=== PATIENT | female | born 1965 | race Caucasian/White ===

== ENCOUNTER 2018-05-05 17:15 | Emergency (ER) | payer BC ==
[2018-05-05 18:35] LABS: BASO % 0.2 % (0-6); EOS % 2.3 % (0-6); GRAN % 49.7 % (47-80); HEMATOCRIT 39.5 % (35.0-47.0); HEMOGLOBIN 12.8 gm/dl (11.6-16.0); LYMPH % 42.7 % (16-45); MEAN CELL VOLUME 94.5 fl (81-97); MEAN CORPUSCULAR HEMOGLOBIN 30.6 pg (27-33); MEAN CORPUSCULAR HGB CONC 32.4 g/dl (32-36); MONO % 5.1 % (0-9); PLATELET COUNT 265 K/uL (130-400); RED BLOOD COUNT 4.18 M/uL (3.80-5.40); RED CELL DISTRIBUTION WIDTH 13.4 % (11.5-14.5); WHITE BLOOD COUNT W/O DIFF 5.7 K/uL (4.2-12.2)
[2018-05-05 18:48] LABS: BLOOD UREA NITROGEN 13 mg/dL (6-20); CREATININE 0.4 mg/dL (0.5-0.9); EST GLOMERULAR FILTRATION RATE > 60 mL/min
--- NOTE | 2018-05-05 18:49 | Emergency Department Record ---
History of Present Illness - General Chief Complaint: Chest Pain Stated Complaint: CHEST PAIN Time Seen by Provider: 05/05/18 18:41 Source: Patient Mode of Arrival: Ambulatory - History of Present Illness Initial Comments: The patient states that today she was watching TV around 4 or 5pm when she developed a sudden stabbing left anterior chest pain 8-9/10 severity associated with nausea, diaphoresis, and difficulty taking a deep breath. She took gas ex which did not help. She noticed it worsened with twisting and moving and deep breathing. For the past 2 weeks she has overall not been feeling well. She has been feeling exhausted overall, and has had intermittent RLQ abdominal pains with nausea and loose stools. She denies fevers, chills, cough, sore throat or any respiratory issues. She has not vomited, and denies being gassy or belching. Many years ago she had fatty food intolerance when her daughter, now an adult, was born. She had a cardiac workup several years ago by [facility] which she tells me was normal. Last summer she was diagnosed with Clara's thyroiditis, and she now is taking thyroid supplements. Cardiac risk factors: nonsmoker, no DM, htn, cholesterol elevation. FH: father had an NM age 55. Onset/Timin -: Minutes(s) Pain Location: Left chest Severity scale (1-10): 8 Quality: Heaviness, Sharp Consistency: Constant - Related Data Home Medications Medication Instructions Recorded Confirmed Last Taken Alprazolam [Xanax] 0.25 mg PO NOW 05/05/18 05/05/18 05/04/18 Dicyclomine HCl [Bentyl] 10 mg PO Q8H 05/05/18 05/05/18 05/04/18 Levothyroxine Sodium 1 tab PO DAILY 05/05/18 05/05/18 05/05/18 Naratriptan HCl [Amerge] 2.5 mg PO DAILY PRN 05/05/18 05/05/18 05/04/18 Suvorexant [Belsomra] 1 tab PO QHS 05/05/18 05/05/18 05/04/18 Allergies Allergy/AdvReac Type Severity Reaction Status Date / Time acetaminophen [From PERCOCET] Allergy Unknown NAUSEA AND Verified 05/05/18 19:18 VOMITING oxycodone HCl [From PERCOCET] Allergy Unknown NAUSEA AND Verified 05/05/18 19:18 VOMITING cephalexin [From Keflex] Allergy HIVES Verified 05/05/18 19:18 Travel Screening - Travel/Exposure Within Last 30 Days Have you traveled within the last 30 days?: No - Travel/Exposure Within Last Year Have you traveled outside the [place] in the last year?: No - Additonal Travel Details Have you been exposed to anyone with a communicable illness?: No - Travel Symptoms Symptom Screening: None Review of Systems Reviewed: No additional complaints except as noted below Constitutional: Reports: As per HPI. Denies: Chills, Fever, Malaise, Night sweats, Weakness, Weight change Eyes: Reports: As per HPI. Denies: Eye discharge, Eye pain, Photophobia, Vision change ENT: Reports: As per HPI. Denies: Congestion, Dental pain, Ear pain, Epistaxis , Hearing loss, Throat pain Respiratory: Reports: As per HPI. Denies: Cough, Dyspnea, Hemoptysis, Stridor, Wheezes Cardiovascular: Reports: As per HPI. Denies: Arrhythmia, Chest pain, Dyspnea on exertion, Edema, Murmurs, Orthopnea, Palpitations, Paroxysmal nocturnal dyspnea, Rheumatic Fever, Syncope Endocrine: Reports: As per HPI. Denies: Fatigue, Heat or cold intolerance, Polydipsia, Polyuria Gastrointestinal: Reports: As per HPI, Abdominal pain (RLQ), Nausea (inermittent ). Denies: Constipation, Diarrhea, Hematemesis, Hematochezia, Melena, Vomiting Genitourinary: Reports: As per HPI. Denies: Abnormal menses, Discharge, Dyspareunia, Dysuria, Frequency, Hematuria, Incontinence, Retention, Urgency Musculoskeletal: Reports: As per HPI. Denies: Arthralgia, Back pain, Gout, Joint swelling, Myalgia, Neck pain Skin: Reports: As per HPI. Denies: Bruising, Change in color, Change in hair/ nails, Lesions, Pruritus, Rash Neurological: Reports: As per HPI. Denies: Abnormal gait, Confusion, Headache, Numbness, Paresthesias, Seizure, Tingling, Tremors, Vertigo, Weakness Psychiatric: Reports: As per HPI. Denies: Anxiety, Auditory hallucinations, Depression, Homicidal thoughts, Suicidal thoughts, Visual hallucinations Hematological/Lymphatic: Reports: As per HPI. Denies: Anemia, Blood Clots, Easy bleeding, Easy bruising, Swollen glands Past Medical History - SOCIAL HISTORY Smoking Status: Never smoker Alcohol Use: Rare Drug Use: None - RESPIRATORY Hx Respiratory Disorders: Yes Hx Asthma: Yes Hx Bronchitis: Yes Hx Pneumonia: Yes - CARDIOVASCULAR Hx Cardio Disorders: Yes Hx Hypertension: Yes Hx Hypotension: Yes - NEURO Hx Neuro Disorders: Yes Hx Headaches: Yes - GI Hx GI Disorders: Yes Hx Ulcer: Yes - Hx Genitourinary Disorders: Yes Hx Renal Disease: Yes Hx UTI: Yes - ENDOCRINE Hx Endocrine Disorders: Yes Hx Diabetes: No Hx Thyroid Disease: Yes - MUSCULOSKELETAL Hx Musculoskeletal Disorders: No - PSYCH Hx Psych Problems: No - HEMATOLOGY/ONCOLOGY Hx Hematology/Oncology Disorders: Yes Hx Anemia: Yes Family Medical History Any Significant Family History?: No Hx Heart Disease: Father, Mother Hx Resp Disorders: Father, Mother Physical Exam - General General Appearance: Alert, Oriented x3, Cooperative, No acute distress, Other ( fatigued) - Head Head exam: Normal inspection - Eye Eye exam: Normal appearance, PERRL, EOMI. negative: Conjunctival injection, Nystagmus Pupils: Normal accommodation - ENT ENT exam: Normal exam, Mucous membranes moist, Normal external ear exam, Normal orophraynx, TM's normal bilaterally Ear exam: Normal external inspection. negative: External canal tenderness Nasal Exam: Normal inspection. negative: Discharge, Sinus tenderness Mouth exam: Normal external inspection, Tongue normal Teeth exam: Normal inspection. negative: Dental caries Throat exam: Normal inspection. negative: Tonsillar erythema, Tonsillar exudate - Neck Neck exam: Normal inspection, Full ROM. negative: Lymphadenopathy, Meningismus , Tenderness - Respiratory Respiratory exam: Normal lung sounds bilaterally, Chest wall tenderness (left aqnterior chest wal palpation reproduced pain of chief complaint.). negative: Accessory muscle use, Decreased breath sounds, Prolonged expiratory, Rales, Respiratory distress, Rhonchi, Stridor, Wheezes - Cardiovascular Cardiovascular Exam: Regular rate, Normal rhythm, Normal heart sounds - GI/Abdominal GI/Abdominal exam: Soft, Normal bowel sounds, Tenderness (mildly tender RLQ). negative: Distended, Guarding - Rectal Rectal exam: Deferred - exam: Deferred - Extremities Extremities exam: Normal inspection, Full ROM, Normal capillary refill. negative: Calf tenderness, Pedal edema, Tenderness - Back Back exam: Reports: Normal inspection, Full ROM. Denies: CVA tenderness (R), CVA tenderness (L), Muscle spasm, Rash noted, Tenderness - Neurological Neurological exam: Alert, CN II-XII intact, Normal gait, Oriented X3, Reflexes normal. negative: Motor sensory deficit - Psychiatric Psychiatric exam: Normal affect, Normal mood - Skin Skin exam: Dry, Intact, Normal color, Warm Course Vital Signs 05/05/18 17:16 Temperature 98.2 F Pulse Rate 84 Respiratory 18 Rate Blood Pressure 135/85 Pulse Ox 99 - Reevaluation(s) Reevaluation #1: 05/05/18 18:[address] Barker and also reviewed by me as normal. Reevaluation #2: the patient walked to the rest room and her chest discomfort increased. Toradol ordered. 05/05/18 19:07 Reevaluation #3: Results negative and discussed with patient. All questions answered. Will repeat troponin and dc if not rising. 05/05/18 21:07 Reevaluation #4: Repeat troponin is unchanged. Patient is ready for DC and will obtain out patient cardiac workup through her PCP. 05/05/18 21:48 Medical Decision Making - Management Options MDM Management: No Additional Work-up Planned - Data Complexity MDM Data: Labs Ordered and/or Reviewed, X-Ray Ordered and/or Reviewed (CT results negative for Chest and abdomen/pelvis. per radiologist.), EKG Ordered and/or Reviewed (Normal EKG.) - Lab Data Result diagrams: 05/05/18 17:38 05/05/18 17:38 Lab Results 05/05/18 Range/Units 17:38 WBC 5.7 (4.2-12.2) K/uL RBC 4.18 (3.80-5.40) M/uL Hgb 12.8 (11.6-16.0) gm/dl Hct 39.5 (35.0-47.0) % MCV 94.5 (81-97) fl MCH 30.6 (27-33) pg MCHC 32.4 (32-36) g/dl RDW 13.4 (11.5-14.5) % Plt Count 265 (130-400) K/uL MPV 10.0 (7.4-10.4) fl Gran % 49.7 (47-80) % Lymphocytes % 42.7 (16-45) % Monocytes % 5.1 (0-9) % Eosinophils % 2.3 (0-6) % Basophils % 0.2 (0-6) % Disposition Clinical Impression: Anterior chest wall pain Instructions: Chest Pain (ED), Chest Wall Pain (ED) Additional Instructions: No lifting with arms. Ibuprofen 600 mg three times daily with food. PCP follow up for out patient cardiac workup and recheck of abdominal pain. Forms: Patient Portal Access Quality - Quality Measures Quality Measures: N/A - Blood Pressure Screening Does Patient Have Any of the Following: No Blood Pressure Classification: Pre-Hypertensive BP Reading Systolic Measurement: 135 Diastolic Measurement: 85 Screening for High Blood Pressure: < Pre-Hypertensive BP, F/U Documented > [ [id number]] Pre-Hypertensive Follow-up Interventions: Follow-up with rescreen every year.
[2018-05-05 18:51] LABS: GLUCOSE,RANDOM 111 mg/dL (74-109)
[2018-05-05 18:56] LABS: CKMB 1.6 ng/mL (<3.77); LIPASE 22 U/L (13-60); TOTAL PROTEIN 6.8 g/dL (6.6-8.7)
[2018-05-05 19:00] LABS: ALBUMIN 4.2 g/dL (4.0-5.0); ALKALINE PHOSPHATASE 97 U/L (45-87); ALT/SGPT 20 U/L (<33); AST/SGOT 16 U/L (10.0-35.0)
[2018-05-05 19:02] LABS: BILIRUBIN,DIRECT < 0.2 mg/dL (0-0.3)
[2018-05-05] MEDS ORDERED: ORPHENADRINE CITRATE 60MG/2ML VIAL IVP ONE (19:08)
[2018-05-05] MEDS ORDERED: KETOROLAC 30 MG/ML VIAL IVP ONE (19:08)
[2018-05-05 19:09] LABS: URINE APPEARANCE CLEAR; URINE BILIRUBIN NEGATIVE (NEGATIVE); URINE BLOOD NEGATIVE (NEGATIVE); URINE COLOR YELLOW; URINE GLUCOSE (UA) NEGATIVE (NEGATIVE); URINE KETONE NEGATIVE (NEGATIVE); URINE LEUKOCYTE ESTERASE MODERATE (NEGATIVE); URINE NITRITE NEGATIVE (NEGATIVE); URINE PROTEIN NEGATIVE (NEGATIVE); URINE UROBILINOGEN 0.2 E.U./dL (0.20 - 1.00)
[2018-05-05 19:18] LABS: URINE BACTERIA NONE SEEN; URINE EPITHELIAL CELLS NONE SEEN (FEW); URINE RBC NONE SEEN (NONE SEEN)
--- NOTE | 2018-05-06 15:05 | CT SCAN REPORT ---
EXAM: CT OF THE CHEST WITH CONTRAST HISTORY: LEFT CHEST PAIN FOR ONE HOUR. DIFFICULTY IN BREATHING. SMOKING HISTORY. TECHNIQUE: Routine contrast enhanced helical CT examination of the chest was performed in conjunction with same day CT abdomen and pelvis examination with 100 ml of Omnipaque [address] abdomen and pelvis report. Comparison: Two view chest radiographic examination dated 01/17/13. FINDINGS: The heart is normal in size. No large central pulmonary embolus noted. The thoracic aorta is normal in caliber and without dissection. 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 The arch branch vessels are otherwise unremarkable. No mediastinal nor hilar mass/lymphadenopathy is seen. The thyroid gland to the extent visualized is not enlarged. The central airways are clear. The lungs and pleural spaces are clear with the exception of minimal linear scarring versus atelectasis in the anterior lung bases. No pericardial effusion. No suspicious lytic or blastic bone lesion. A couple small sclerotic foci are noted within the proximal left humerus consistent with bone islands. No lytic or blastic bone lesion. IMPRESSION: NO CT EVIDENCE OF AN ACUTE INTRATHORACIC ABNORMALITY. 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 MINIMAL LINEAR SCARRING VERSUS ATELECTASIS IN THE ANTERIOR LUNG BASES. JOB NUMBER: [id number] [facility]
--- NOTE | 2018-05-06 15:15 | CT SCAN REPORT ---
EXAM: CT OF THE ABDOMEN AND PELVIS WITH CONTRAST HISTORY: RIGHT LOWER ABDOMINAL PAIN. TECHNIQUE: CT of the abdomen and pelvis with contrast was performed in conjunction with same day CT chest with contrast with 100 ml of Omnipaque 300 utilized. Delayed images through the kidneys are also obtained. Please see CT chest report. Comparison: CT abdomen and pelvis with contrast dated 09/04/08. FINDINGS: Minimal linear scarring versus atelectasis in the anterior lung bases. The lung bases are otherwise clear and there is no pleural or pericardial effusion. The heart is not enlarged. The liver, spleen, pancreas, adrenal glands, and kidneys are normal in appearance. The gallbladder is unremarkable and no biliary ductal dilatation is seen. No intraabdominal nor retroperitoneal lymphadenopathy is identified. The portal vein and splenic vein are patent. The aorta and its proximal branches are unremarkable. No pelvic mass, lymphadenopathy, or free pelvic fluid is seen. Fallopian tube occlusive devices are in place. The uterus is somewhat retroflexed. It is otherwise unremarkable. No intrinsic urinary bladder abnormality is seen though evaluation is limited by lack of distention. The ovaries are not enlarged. No gross bowel dilatation nor bowel wall thickening is seen though evaluation is limited by lack of oral contrast utilization. Stool volume within the colon is moderate. The appendix is visualized and is normal in appearance. No lytic or blastic bone lesion is seen. A tiny fat filled umbilical hernia is present. IMPRESSION: 1. NO CT EVIDENCE OF AN ACUTE INTRAABDOMINAL NOR INTRAPELVIC PROCESS. 2. STOOL VOLUME WITHIN THE COLON IS MODERATE. 3. FALLOPIAN TUBE OCCLUSIVE DEVICES IN PLACE. 4. NORMAL APPENDIX. J[facility]: [id number] [facility]
== END 2018-05-05 21:48 | disposition home or self-care (01) ==
LOC: ER 17:15
DX: R07.89 Other chest pain (principal); R11.0 Nausea; R06.00 Dyspnea, unspecified; R10.31 Right lower quadrant pain; R19.7 Diarrhea, unspecified; R53.83 Other fatigue; E06.3 Autoimmune thyroiditis; Z87.891 Personal history of nicotine dependence
CPT/HCPCS: 99284 ×2; 96374; 96375; 83690; 85025; 85730; 80076; 82553; 80048; 81001; 84443; 84484; 85379; 71260; 74177; 93005; 93010; Q9967; J1885; J2360